=== PATIENT | male | born 1965 | race African-American/Black ===

== ENCOUNTER 2018-10-29 02:51 | Emergency (ER) | payer OTHER ==
[~2018-10-29] VITALS: Ht 170.2 cm; Wt 1160.3 kg
[2018-10-29 02:57] VITALS: Ht 170.2 cm; Wt 1160.3 kg
[2018-10-29 05:42] LABS: microscopic required? NO
[2018-10-29 05:52] LABS: urine erythrocyte NEGATIVE (NEGATIVE)
[2018-10-29 05:52] LABS: BASOPHIL % 1.3 % (0-2); PLATELET COUNT 218 x10^3mcL (130-400)
[2018-10-29 05:53] LABS: RED CELL DISTRIBUTION WIDTH 14.7 % (11.5-14.5)
[2018-10-29 06:01] LABS: CALCIUM 9.9 mg/dL (8.5-10.1); CARBON DIOXIDE 32.3 mmol/L (21-32); CHLORIDE SERUM 100 mmol/L (98-107); CREATININE SERUM 1.2 mg/dL (0.7-1.3); GFR1 > 60 mL/min; GLUCOSE SERUM 97 mg/dL (74-106); POTASSIUM SERUM 3.7 mmol/L (3.5-5.1); SODIUM SERUM 139 mmol/L (136-145)
[2018-10-29 07:48] VITALS: BP 127/84
== END 2018-10-29 07:54 | disposition home or self-care (01) ==
LOC: ED 02:51
PROVIDERS: Emergency Medicine
DX: K57.90 Diverticulosis of intestine, part unspecified, without perforation or abscess without bleeding (principal); K40.20 Bilateral inguinal hernia, without obstruction or gangrene, not specified as recurrent; R91.8 Other nonspecific abnormal finding of lung field; I10 Essential (primary) hypertension; G89.29 Other chronic pain; M54.9 Dorsalgia, unspecified
CPT/HCPCS: 36415; J2270

== ENCOUNTER 2018-12-21 04:54 | Emergency (ER) | payer OTHER ==
[~2018-12-21] VITALS: Ht 170.2 cm; Wt 114.1 kg
[2018-12-21 05:03] VITALS: Ht 170.2 cm; Wt 114.1 kg
[2018-12-21 06:16] VITALS: BP 145/92
== END 2018-12-21 06:16 | disposition home or self-care (01) ==
LOC: ED 04:54
DX: J20.9 Acute bronchitis, unspecified (principal); I10 Essential (primary) hypertension; G89.29 Other chronic pain; M54.9 Dorsalgia, unspecified
CPT/HCPCS: J1885; J7620; Q0092

== ENCOUNTER 2018-12-28 18:37 | Emergency (ER) | payer OTHER ==
[~2018-12-28] VITALS: Ht 170.2 cm; Wt 117.5 kg
[2018-12-28 18:50] VITALS: Ht 170.2 cm; Wt 117.5 kg
[2018-12-28 20:51] LABS: BASOPHIL % 0.4 % (0-2); PLATELET COUNT 214 x10^3mcL (130-400); RED CELL DISTRIBUTION WIDTH 14.5 % (11.5-14.5)
[2018-12-28 20:56] LABS: CALCIUM 9.2 mg/dL (8.5-10.1); CARBON DIOXIDE 30.3 mmol/L (21-32); CREATININE SERUM 1.5 mg/dL (0.7-1.3); POTASSIUM SERUM 4.3 mmol/L (3.5-5.1)
[2018-12-28 21:01] LABS: ALBUMIN 3.7 g/dL (3.4-5.0); BILIRUBIN TOTAL 0.27 mg/dL (0.20-1.00); TOTAL PROTEIN, SERUM 7.6 g/dL (6.4-8.2)
[2018-12-28 21:43] LABS: microscopic required? YES; urine erythrocyte NEGATIVE (NEGATIVE)
[2018-12-29 00:47] VITALS: BP 139/110
== END 2018-12-29 00:47 | disposition home or self-care (01) ==
LOC: ED 18:37
PROVIDERS: Emergency Medicine
DX: E86.0 Dehydration (principal); R55 Syncope and collapse; R19.7 Diarrhea, unspecified; R06.2 Wheezing; I10 Essential (primary) hypertension; G89.29 Other chronic pain; Z98.890 Other specified postprocedural states
CPT/HCPCS: 83880; J7030; J7613; J7644; Q0092

== ENCOUNTER 2019-06-26 22:52 | Emergency (ER) | payer OTHER, MEDICAID ==
[~2019-06-26] VITALS: Ht 170.2 cm; Wt 114.3 kg
[2019-06-27 00:24] VITALS: BP 126/86
== END 2019-06-27 00:24 | disposition home or self-care (01) ==
LOC: ED 22:52
DX: M46.82 Other specified inflammatory spondylopathies, cervical region (principal); J06.9 Acute upper respiratory infection, unspecified; M54.5 Low back pain; I10 Essential (primary) hypertension; G89.29 Other chronic pain; Z98.890 Other specified postprocedural states
CPT/HCPCS: J1885

== ENCOUNTER 2019-07-15 16:50 | Emergency (ER) | payer OTHER, MEDICAID ==
[~2019-07-15] VITALS: Ht 170.2 cm; Wt 113.9 kg
[2019-07-15 17:20] VITALS: Ht 170.2 cm; Wt 113.9 kg
[2019-07-15 22:24] VITALS: BP 114/84
== END 2019-07-15 22:24 | disposition home or self-care (01) ==
LOC: ED 16:50
DX: J40 Bronchitis, not specified as acute or chronic (principal); K21.9 Gastro-esophageal reflux disease without esophagitis; Z98.890 Other specified postprocedural states
CPT/HCPCS: 87804; J1885; Q0092; Q0162

== ENCOUNTER 2020-02-21 16:34 | Emergency (ER) | payer OTHER, MEDICAID ==
[~2020-02-21] VITALS: Ht 170.2 cm; Wt 111.1 kg
[2020-02-21 16:56] VITALS: Ht 170.2 cm; Wt 111.1 kg
[2020-02-21 19:02] VITALS: BP 112/77
== END 2020-02-21 19:02 | disposition home or self-care (01) ==
LOC: ED 16:34
DX: G89.29 Other chronic pain (principal); M54.5 Low back pain; I10 Essential (primary) hypertension; Z98.890 Other specified postprocedural states
CPT/HCPCS: J1885

== ENCOUNTER 2020-07-10 14:56 | Emergency (ER) | payer OTHER ==
[~2020-07-10] VITALS: Ht 170.2 cm; Wt 108.9 kg
[2020-07-10 16:45] VITALS: Ht 170.2 cm; Wt 108.9 kg
[2020-07-10 21:44] VITALS: BP 134/94
== END 2020-07-10 21:44 | disposition home or self-care (01) ==
LOC: ED 14:56
DX: M54.5 Low back pain (principal); G89.29 Other chronic pain; I10 Essential (primary) hypertension
CPT/HCPCS: J1885; Q0162